=== PATIENT | female | born 1965 | race Caucasian/White ===

== ENCOUNTER 2021-05-31 14:23 | Emergency (ER) | payer MEDICAID ==
[~2021-05-31] VITALS: Ht 144.8 cm; Wt 111.0 kg
[2021-05-31] MEDS ORDERED: SODIUM CHLORIDE 0.9% 1,000 ML IV ONE (14:45)
[2021-05-31 14:56] LABS: BASOPHILS % 0.9 % (0.0-2.0); EOSINOPHILS % 0.7 % (0.0-5.0); HEMATOCRIT. 36.7 % (36.0-48.0); HEMOGLOBIN. 12.3 g/dL (12.0-16.0); LYMPHOCYTES % 28.2 % (20.0-50.0); MEAN CORPUSCULAR HEMOGLOBIN 31.5 pg (28.0-32.0); MEAN CORPUSCULAR VOLUME 94.3 fL (81.0-99.0); MEAN PLATELET VOLUME 8.8 fl (7.4-10.4); MONOCYTES % 8.8 % (2.0-8.0); NEUTROPHILS % 61.4 % (40.0-76.0); PLATELET 217 x1000/uL (130-400); RED BLOOD CELL COUNT 3.89 mill/uL (4.2-5.4)
[2021-05-31 15:04] LABS: CHLORIDE 111 mEq/L (98-107)
[2021-05-31 15:27] LABS: B-HCG QUANTITATIVE 138873 mIU/mL (<3)
[2021-05-31] MEDS ORDERED: ONDANSETRON HCL 4MG/2ML INJ IV ONE (16:00)
[2021-05-31 17:47] LABS: CLARITY URINE CLOUDY (CLEAR); COLOR URINE YELLOW (YELLOW); KETONES URINE TRACE (NEGATIVE); LEUKOCYTE ESTERASE URINE NEGATIVE (NEGATIVE); NITRITE URINE NEGATIVE (NEGATIVE); OCCULT BLOOD URINE 2+ (NEGATIVE); PROTEIN URINE NEGATIVE (NEGATIVE); SPECIFIC GRAVITY URINE 1.025 (1.005-1.030); UROBILINOGEN URINE 0.2 E.U./dL (0.2-1.0)
[2021-05-31 18:58] VITALS: BP 146/69
== END 2021-05-31 19:00 | disposition home or self-care (01) ==
LOC: ER 14:23
DX: O02.0 Blighted ovum and nonhydatidiform mole (principal); N93.9 Abnormal uterine and vaginal bleeding, unspecified; R79.9 Abnormal finding of blood chemistry, unspecified; Z88.8 Allergy status to other drugs, medicaments and biological substances
CPT/HCPCS: 36415; 76801; 76817; 80053; 81003; 84702; 85025; 85610; 86850; 86900; 86901; 96361; 96374; 99284; J2405; J7030